=== PATIENT | female | born 1940 | race Caucasian/White ===

== ENCOUNTER 2017-09-20 07:13 | Day surgery (SDC) | payer MEDICARE, OTHER ==
[~2017-09-20] VITALS: Ht 160 cm; Wt 83.6 kg
[~2017-09-20 07:13] MED LIST: ALLO100 PO; ASPI81CH PO; ATACAND HCT PO; ATOR10 PO; CALCIUM PO; CHOLECALCIFEROL PO; ESOM20 PO; HYDRO EYES BOTHEYES; METO50ER PO; TIROSINT100 MCG PO; voltaren gel TOP
== END 2017-09-20 09:31 | disposition home or self-care (01) ==
LOC: ORSCSDS 07:13
PROVIDERS: Surgery
PROC: 0DBN8ZX Excision of Sigmoid Colon, Via Natural or Artificial Opening Endoscopic, Diagnostic (ICD-10-PCS; principal; 2017-09-20 08:30)
DX: Z12.11 Encounter for screening for malignant neoplasm of colon (principal); D12.5 Benign neoplasm of sigmoid colon; K57.30 Diverticulosis of large intestine without perforation or abscess without bleeding; Z86.010 Personal history of colon polyps; I10 Essential (primary) hypertension; E78.5 Hyperlipidemia, unspecified; E03.9 Hypothyroidism, unspecified; Z79.82 Long term (current) use of aspirin; Z79.899 Other long term (current) drug therapy; Z87.891 Personal history of nicotine dependence
CPT/HCPCS: 88305

== ENCOUNTER → 2017-10-02 | Outpatient (CLI) | payer MEDICARE, OTHER | END | disposition home or self-care (01) | LOC: PLD 13:32 → LAB SHORT 13:32 | DX: D48.5 Neoplasm of uncertain behavior of skin (principal) | CPT/HCPCS: 88305 ==

== ENCOUNTER 2019-05-20 15:29 | Inpatient (IN) | payer MEDICARE, OTHER ==
[~2019-05-20] VITALS: Ht 157.5 cm; Wt 91.0 kg
[~2019-05-20 15:29] MED LIST changes: +ACET500 PO; +ANASTROZOLE5 GM PO; +COQ1050 MG PO; +TYLECOD3 PO
--- NOTE | 2019-05-21 06:36 | NUR ---
History, Chart, Medications and Allergies reviewed before start of procedure. Patient confirms NPO status and agrees with scheduled surgery. Lungs clear T/O to Auscultation.
--- NOTE | 2019-05-22 03:53 | NUR ---
Patient alert and oriented x4. VSS. Ambulating to bathroom with 1 assist and FWW. Voiding freely. Saline locked. Tolerating PO. No complaints of pain. Dressing to L hip D/C/I. Polar Ice applied.
[2019-05-22 06:13] LABS: BASOPHILS ABSOLUTE AUTO 0.01 K/mm3 (0.00-0.23); BASOPHILS PERCENT AUTO 0 % (0-2); EOSINOPHILS PERCENT AUTO 0 % (0-6); Hematocrit 24.6 % (33.0-51.0); Hemoglobin 7.9 g/dL (11.5-16.0); IMMATURE GRAN ABSOLUTE AUTO 0.05 K/mm3 (0.00-0.10); IMMATURE GRAN PERCENT AUTO 1 % (0-1); LYMPHOCYTES ABSOLUTE AUTO 0.75 K/mm3 (0.84-5.20); LYMPHOCYTES PERCENT AUTO 7 % (21-46); MONOCYTES ABSOLUTE AUTO 1.03 K/mm3 (0.16-1.47); MONOCYTES PERCENT AUTO 10 % (4-13); Mean Corpuscular HGB 32.4 pg (26.0-34.0); Mean Corpuscular HGB Conc 32.1 g/dL (31.5-36.5); Mean Corpuscular Volume 101 fL (80-100); Mean Platelet Volume 9.9 fL (9.1-12.4); NEUTROPHILS ABSOLUTE AUTO 9.01 K/mm3 (1.96-9.15); NEUTROPHILS PERCENT AUTO 83 % (41-73); Platelet Count 237 K/mm3 (150-400); RDW Coefficient Variation 14.3 % (11.7-14.2); RDW Standard Deviation 52.6 fL (35.1-46.3); Red Blood Cell Count 2.44 M/mm3 (3.80-5.20); White Blood Cell Count 10.85 K/mm3 (4.00-11.30)
[2019-05-22 06:28] LABS: Bun/Creatinine Ratio 24.4 (12.0-20.0); Calcium, Blood 8.3 mg/dL (8.5-10.1); Creatinine, Blood 1.8 mg/dL (0.40-1.00); Magnesium, Blood 1.2 mg/dL (1.6-2.4); Potassium, Blood 4.6 mmol/L (3.5-5.5)
[2019-05-22] MEDS ORDERED: ASPI325EC PO (07:58)
[2019-05-22] MEDS ORDERED: ROXICODONE5 MG PO (07:58)
[2019-05-22] MEDS ORDERED: Bactrim Ds Tab1 EACH PO (08:41)
--- NOTE | 2019-05-22 14:39 | NUR ---
DISCHARGE SUMMARY PT A&OX4, VSS, LEFT FLOOR VIA WC WITH RESIDENTIAL CONCIERGE TO GO HOME WITH AND DAUGHTER, WITH ALL PERSONAL POSSESSIONS INCLUDING DC PACKET. PT REP HAVING ALL SCRIPTS FROM [facility] FILLED AND AT HOME. DC INSTRUCTIONS PROVIDED. PT REP UNDERSTANDING THOSE INSTRUCTIONS INCLUDING HOME HEALTH, PHYSICAL THERAPY, SHORT FREQ AMB, OK TO SHOWER, NO TUB BATHS/JACUZZI, PAIN MANAGEMENT. IV DC'D.
== END 2019-05-22 14:40 | disposition home or self-care (01) | DRG 470 ==
LOC: SURS 05-21 06:07 → PRE IP 05-21 07:30 → SURS 05-21 10:57
PROVIDERS: ADMIT Orthopaedic Surgery
PROC: 0SRB04A Replacement of Left Hip Joint with Ceramic on Polyethylene Synthetic Substitute, Uncemented, Open Approach (ICD-10-PCS; principal; 2019-05-21 07:30)
DX: M16.12 Unilateral primary osteoarthritis, left hip (principal); I12.9 Hypertensive chronic kidney disease with stage 1 through stage 4 chronic kidney disease, or unspecified chronic kidney disease; M19.90 Unspecified osteoarthritis, unspecified site; K21.9 Gastro-esophageal reflux disease without esophagitis; N18.9 Chronic kidney disease, unspecified; Z68.36 Body mass index [BMI] 36.0-36.9, adult
CPT/HCPCS: 36415; 72170; 80048; 83735; 85025; 88300; 97110; 97116; 97162; 97166; 97530; 97535; C1713; C1776; J0171; J0690; J0735; J1100; J1885; J2250; J2405; J2704; J2795; J3010; J3370; J3475; J3480; J7040; J7120

== ENCOUNTER → 2019-10-02 | Outpatient (CLI) | payer MEDICARE, OTHER ==
[~2019-10-02] MED LIST changes: +ASPI325EC PO; +Bactrim Ds Tab1 EACH PO; +ROXICODONE5 MG PO
== END | disposition home or self-care (01) ==
LOC: LAB SHORT 09:05 → PLD 09:05
DX: D48.5 Neoplasm of uncertain behavior of skin (principal)
CPT/HCPCS: 88305

== ENCOUNTER 2020-07-18 13:14 | Emergency (ER) | payer MEDICARE, OTHER ==
[~2020-07-18] VITALS: Ht 157.5 cm; Wt 87.5 kg
[~2020-07-18 13:14] MED LIST changes: -ALLO100 PO; -ANASTROZOLE5 GM PO; -ASPI325EC PO; -ATACAND HCT PO; -ATOR10 PO; -ESOM20 PO; -METO50ER PO; -TIROSINT100 MCG PO
[2020-07-18 14:27] LABS: BASOPHILS ABSOLUTE AUTO 0.05 K/mm3 (0.00-0.23); BASOPHILS PERCENT AUTO 1 % (0-2); EOSINOPHILS ABSOLUTE AUTO 0.22 K/mm3 (0.00-0.68); EOSINOPHILS PERCENT AUTO 4 % (0-6); Hematocrit 36.7 % (33.0-51.0); Hemoglobin 11.4 g/dL (11.5-16.0); IMMATURE GRAN ABSOLUTE AUTO 0.02 K/mm3 (0.00-0.10); IMMATURE GRAN PERCENT AUTO 0 % (0-1); LYMPHOCYTES ABSOLUTE AUTO 1.16 K/mm3 (0.84-5.20); LYMPHOCYTES PERCENT AUTO 19 % (21-46); MONOCYTES PERCENT AUTO 8 % (4-13); Mean Corpuscular HGB 31.7 pg (26.0-34.0); Mean Corpuscular HGB Conc 31.1 g/dL (31.5-36.5); Mean Corpuscular Volume 102 fL (80-100); Mean Platelet Volume 10.4 fL (9.1-12.4); NEUTROPHILS ABSOLUTE AUTO 4.21 K/mm3 (1.96-9.15); NEUTROPHILS PERCENT AUTO 68 % (41-73); Platelet Count 230 K/mm3 (150-400); RDW Coefficient Variation 13.1 % (11.7-14.2); RDW Standard Deviation 49.1 fL (35.1-46.3); White Blood Cell Count 6.16 K/mm3 (4.00-11.30)
[2020-07-18 14:40] LABS: Troponin I <0.015 ng/mL (0.000-0.040)
[2020-07-18 14:41] LABS: Alanine Aminotransfer (ALT/SGP 21 U/L (12-78); Albumin, Blood 3.7 g/dL (3.4-5.0); Albumin/Globulin Ratio 1.1 (0.8-1.8); Alk Phos 62 U/L (50-136); Anion Gap 4 mmol/L (6-16); Aspartate Aminotrans (AST/SGOT 20 U/L (12-37); Bilirubin, Total 0.5 mg/dL (0.1-1.0); Blood Urea Nitrogen 30 mg/dL (8-24); Bun/Creatinine Ratio 19.5 (12.0-20.0); CO2, Blood 30 mmol/L (21-32); Calcium, Blood 9.5 mg/dL (8.5-10.1); Chloride, Blood 109 mmol/L (98-108); Creatinine, Blood 1.54 mg/dL (0.40-1.00); Globulin, Blood 3.4 g/dL (2.2-4.0); Glomerular Filtration Rate 34 (60-); Glucose, Blood 119 mg/dL (70-99); Potassium, Blood 3.8 mmol/L (3.5-5.5); Sodium, Blood 143 mmol/L (136-145); Total Protein, Blood 7.1 g/dL (6.4-8.2)
== END 2020-07-18 19:30 | disposition home or self-care (01) ==
LOC: ER 13:14
PROVIDERS: Emergency Medicine
DX: E83.42 Hypomagnesemia (principal); R51.9 Headache, unspecified; I10 Essential (primary) hypertension; Z91.09 Other allergy status, other than to drugs and biological substances; Z79.82 Long term (current) use of aspirin; Z79.899 Other long term (current) drug therapy; Z87.891 Personal history of nicotine dependence
CPT/HCPCS: 36415; 70450; 71045; 80053; 83735; 84484; 85025; 93005; 93010; 99284-25; J7120

== ENCOUNTER 2020-07-20 15:26 | Emergency (ER) | payer MEDICARE, OTHER ==
[~2020-07-20] VITALS: Ht 157.5 cm; Wt 87.5 kg
[2020-07-20 16:31] LABS: BASOPHILS ABSOLUTE AUTO 0.03 K/mm3 (0.00-0.23); BASOPHILS PERCENT AUTO 1 % (0-2); EOSINOPHILS ABSOLUTE AUTO 0.05 K/mm3 (0.00-0.68); EOSINOPHILS PERCENT AUTO 1 % (0-6); Hematocrit 33.5 % (33.0-51.0); Hemoglobin 10.6 g/dL (11.5-16.0); IMMATURE GRAN ABSOLUTE AUTO 0.01 K/mm3 (0.00-0.10); IMMATURE GRAN PERCENT AUTO 0 % (0-1); LYMPHOCYTES ABSOLUTE AUTO 1.13 K/mm3 (0.84-5.20); LYMPHOCYTES PERCENT AUTO 19 % (21-46); MONOCYTES ABSOLUTE AUTO 0.39 K/mm3 (0.16-1.47); MONOCYTES PERCENT AUTO 7 % (4-13); Mean Corpuscular HGB 31.7 pg (26.0-34.0); Mean Corpuscular HGB Conc 31.6 g/dL (31.5-36.5); Mean Corpuscular Volume 100 fL (80-100); Mean Platelet Volume 10.8 fL (9.1-12.4); NEUTROPHILS ABSOLUTE AUTO 4.38 K/mm3 (1.96-9.15); NEUTROPHILS PERCENT AUTO 73 % (41-73); Platelet Count 231 K/mm3 (150-400); RDW Coefficient Variation 13.2 % (11.7-14.2); RDW Standard Deviation 48.1 fL (35.1-46.3); Red Blood Cell Count 3.34 M/mm3 (3.80-5.20); White Blood Cell Count 5.99 K/mm3 (4.00-11.30)
[2020-07-20 16:55] LABS: Alanine Aminotransfer (ALT/SGP 18 U/L (12-78); Albumin, Blood 3.5 g/dL (3.4-5.0); Albumin/Globulin Ratio 1.1 (0.8-1.8); Alk Phos 56 U/L (50-136); Anion Gap 6 mmol/L (6-16); Aspartate Aminotrans (AST/SGOT 17 U/L (12-37); Bilirubin, Total 0.7 mg/dL (0.1-1.0); Blood Urea Nitrogen 19 mg/dL (8-24); Bun/Creatinine Ratio 15.8 (12.0-20.0); CO2, Blood 29 mmol/L (21-32); Calcium, Blood 9.5 mg/dL (8.5-10.1); Chloride, Blood 106 mmol/L (98-108); Globulin, Blood 3.1 g/dL (2.2-4.0); Glomerular Filtration Rate 46 (60-); Glucose, Blood 99 mg/dL (70-99); Potassium, Blood 3.6 mmol/L (3.5-5.5); Sodium, Blood 141 mmol/L (136-145); Total Protein, Blood 6.6 g/dL (6.4-8.2); Troponin I <0.015 ng/mL (0.000-0.040)
[2020-07-20 17:52] LABS: Source, Urine Clean Catch
[2020-07-20 17:56] LABS: Bilirubin, Urine Neg (Neg); Blood, Urine Neg (Neg); Glucose Qualitative, Urine Neg (Neg); Ketones, Urine Neg (Neg); Leukocyte Esterase, Urine 1+ (Neg); Nitrite, Urine Neg (Neg); Protein, Urine Neg (Neg); Urobilinogen, Urine NORM (Normal)
[2020-07-20 18:01] LABS: Appearance, Urine Clear (Clear); Color, Urine Yellow (P-Yellow)
[2020-07-20 18:02] LABS: Bacteria Few /hpf; Red Blood Cells, Urine 0-2 /hpf (0-2); Squamous Epithelial Cells Few /hpf (Few)
[2020-07-20] MEDS ORDERED: Zofran4 MG PO (18:41)
[2020-07-21] MEDS ORDERED: AMLODIPINE BES2.5 MG PO (12:59)
[2020-07-21] MEDS ORDERED: ALLO100 PO (12:59)
[2020-07-21] MEDS ORDERED: EUTHYROX88 MCG PO (12:59)
[2020-07-21] MEDS ORDERED: ATOR10 PO (13:00)
[2020-07-21] MEDS ORDERED: ANASTROZOLE1 M1 PO (13:00)
[2020-07-21] MEDS ORDERED: ATACAND HCT 321 EAC1 PO (13:00)
[2020-07-21] MEDS ORDERED: METO50ER PO (13:01)
[2020-07-21] MEDS ORDERED: ASPIR 8181 M1 PO (13:21)
[2020-07-21] MEDS ORDERED: Nexium40 MG PO (13:21)
[2020-07-21] MEDS ORDERED: MAGNESIUM OXID500 MG PO (13:22)
== END 2020-07-20 20:20 | disposition home or self-care (01) ==
LOC: ER 15:26
PROVIDERS: Physician Assistant
DX: E83.42 Hypomagnesemia (principal); I10 Essential (primary) hypertension; Z79.82 Long term (current) use of aspirin; Z91.09 Other allergy status, other than to drugs and biological substances; Z79.899 Other long term (current) drug therapy; Z87.891 Personal history of nicotine dependence
CPT/HCPCS: 71046; 80053; 81001; 83735; 84100; 84484; 85025; 87086; 87147; 93005; 93010; 96374; 99284-25; A9270-GY; J3475

== ENCOUNTER 2020-07-21 08:34 | Inpatient (IN) | payer MEDICARE, OTHER ==
[~2020-07-21] VITALS: Ht 157.5 cm; Wt 83.3 kg
[~2020-07-21 08:34] MED LIST changes: +Zofran4 MG PO
[2020-07-21 09:58] LABS: BASOPHILS ABSOLUTE AUTO 0.02 K/mm3 (0.00-0.23); BASOPHILS PERCENT AUTO 0 % (0-2); EOSINOPHILS ABSOLUTE AUTO 0.02 K/mm3 (0.00-0.68); EOSINOPHILS PERCENT AUTO 0 % (0-6); Hematocrit 30.3 % (33.0-51.0); Hemoglobin 9.4 g/dL (11.5-16.0); IMMATURE GRAN ABSOLUTE AUTO 0.03 K/mm3 (0.00-0.10); IMMATURE GRAN PERCENT AUTO 1 % (0-1); LYMPHOCYTES ABSOLUTE AUTO 0.84 K/mm3 (0.84-5.20); LYMPHOCYTES PERCENT AUTO 18 % (21-46); MONOCYTES ABSOLUTE AUTO 0.25 K/mm3 (0.16-1.47); MONOCYTES PERCENT AUTO 5 % (4-13); Mean Corpuscular HGB 31.6 pg (26.0-34.0); Mean Corpuscular Volume 102 fL (80-100); NEUTROPHILS ABSOLUTE AUTO 3.53 K/mm3 (1.96-9.15); NEUTROPHILS PERCENT AUTO 75 % (41-73); Platelet Count 186 K/mm3 (150-400); RDW Coefficient Variation 12.9 % (11.7-14.2); RDW Standard Deviation 48.1 fL (35.1-46.3); Red Blood Cell Count 2.97 M/mm3 (3.80-5.20); White Blood Cell Count 4.69 K/mm3 (4.00-11.30)
[2020-07-21 10:18] LABS: Alanine Aminotransfer (ALT/SGP 16 U/L (12-78); Albumin, Blood 3.3 g/dL (3.4-5.0); Albumin/Globulin Ratio 1.1 (0.8-1.8); Alk Phos 55 U/L (50-136); Anion Gap 6 mmol/L (6-16); Aspartate Aminotrans (AST/SGOT 17 U/L (12-37); Bilirubin, Total 0.6 mg/dL (0.1-1.0); Blood Urea Nitrogen 17 mg/dL (8-24); Bun/Creatinine Ratio 14.8 (12.0-20.0); CO2, Blood 27 mmol/L (21-32); Calcium, Blood 9.3 mg/dL (8.5-10.1); Chloride, Blood 107 mmol/L (98-108); Creatinine, Blood 1.15 mg/dL (0.40-1.00); Glomerular Filtration Rate 48 (60-); Glucose, Blood 99 mg/dL (70-99); Magnesium, Blood 1.6 mg/dL (1.6-2.4); Potassium, Blood 3.7 mmol/L (3.5-5.5); Sodium, Blood 140 mmol/L (136-145); Total Protein, Blood 6.3 g/dL (6.4-8.2); Troponin I <0.015 ng/mL (0.000-0.040)
[2020-07-21] MEDS ORDERED: ALLO100 PO (12:59)
[2020-07-21] MEDS ORDERED: AMLODIPINE BES2.5 MG PO (12:59)
[2020-07-21] MEDS ORDERED: EUTHYROX88 MCG PO (12:59)
[2020-07-21] MEDS ORDERED: ATOR10 PO (13:00)
[2020-07-21] MEDS ORDERED: ATACAND HCT 321 EAC1 PO (13:00)
[2020-07-21] MEDS ORDERED: ANASTROZOLE1 M1 PO (13:00)
[2020-07-21] MEDS ORDERED: METO50ER PO (13:01)
[2020-07-21] MEDS ORDERED: ASPIR 8181 M1 PO (13:21)
[2020-07-21] MEDS ORDERED: Nexium40 MG PO (13:21)
[2020-07-21] MEDS ORDERED: MAGNESIUM OXID500 MG PO (13:22)
[2020-07-21 13:27] LABS: Adenovirus Not Detected (NOT DETECT); Coronavirus 229E Not Detected (NOT DETECT); Coronavirus HKU1 Not Detected (NOT DETECT); Coronavirus NL63 Not Detected (NOT DETECT); Coronavirus OC43 Not Detected (NOT DETECT); Human Metapneumovirus Not Detected (NOT DETECT); Human Rhinovirus/Enterovirus Not Detected (NOT DETECT); Influenza A/2009-H1 Not Detected (NOT DETECT); Influenza A/H1 Not Detected (NOT DETECT); Influenza A/H3 Not Detected (NOT DETECT); Influenza B Not Detected (NOT DETECT); Parainfluenza Virus 1 Not Detected (NOT DETECT); Parainfluenza Virus 2 Not Detected (NOT DETECT); Parainfluenza Virus 3 Not Detected (NOT DETECT); Parainfluenza Virus 4 Not Detected (NOT DETECT); Respiratory Syncytial Virus Not Detected (NOT DETECT); SARS-Cov-2 (COVID-19), BioFire Not Detected (NOT DETECT)
[2020-07-21 13:28] LABS: Bordetella pertussis Not Detected (NOT DETECT); Chlamydophila pneumoniae Not Detected (NOT DETECT); Mycoplasma pneumoniae Not Detected (NOT DETECT)
--- NOTE | 2020-07-21 14:28 | NUR ---
DNR DNR BAND VERIFIED WITH SCOTTY KRAFT ON L HAND.
[2020-07-21 14:31] LABS: Hematocrit 32.4 % (33.0-51.0); Hemoglobin 10.3 g/dL (11.5-16.0)
--- NOTE | 2020-07-21 17:55 | NUR ---
PT IS A 79Y0 FEMALE- A0X4, WHO HAD 3 VISITS AT ED WITHIN THE LAST WEEK. PT CAME IN WITH N/T ON L SIDE, MOUTH DROOP ON L AND WEAKNESS WITH HEADACHE. CT HEAD WAS UNREMARKABLE 3DAYS AGO. PT CAME IN TO ED FOR THE SAME REASONS WITHIN THE LAST VISITS. PT IS 1P ASSIST USING FWW; PT HAS GENERALIZED WEAKNESS AND WILL DEFINITELY NEEDS ASSISTANCE AND SUPERVISION WHEN UP. PT SPEECH APPROPRIATE, NO GARBLED SPEECH NOTED. PT C/O N/T ON L SIDE FINGER AND L FOOT; H&h NOTED TO BE DROPPING WITHIN THE LAST 3 VISITS; THEREFORE GI WAS CONSULTED. PT WAS POSITIVE FOR FECAL OCCULT; HOWEVER PT STATED SHE ALSO HAS HEMMORHOIDS. NEURO CHECK DONE ON ADMISSION; PT DENIES CP. PT C/O CONSTANT HEADACHE; MEDICATED PER EMAR. PT IS ON NS KCL OF 20 MEQ. PT WILL BE NPO AT MIDNIGHT TONIGHT 07/22 FOR PROCEDURE BY MEENA LOVING. BED IS IN THE LOWEST POSITION; AND PT EDUCATED ABOUT USING CALL LIGHTS WHEN GETTING UP.
--- NOTE | 2020-07-22 04:15 | NUR ---
CORE CHECKER SUMMARY PT A&OX4, ABLE TO MAKE NEEDS KNOWN. PLEASANT AND COOPERATIVE TO CARE. PT MEDICATED FOR PAIN PER EMAR. NO C/O CP, SOB, OR N&V. PT ALSO GIVEN PRN TRAZODONE ORDERED FOR INSOMNIA. PT CALM AND RESTED IN BED T/O SHIFT, NPO AFTER MIDNIGHT FOR SCHEDULED EGD 07/22/20. BED AT LOWEST POSITION, CALL LIGHT WITHIN REACH.
[2020-07-22 05:35] LABS: BASOPHILS ABSOLUTE AUTO 0.04 K/mm3 (0.00-0.23); BASOPHILS PERCENT AUTO 1 % (0-2); EOSINOPHILS ABSOLUTE AUTO 0.08 K/mm3 (0.00-0.68); EOSINOPHILS PERCENT AUTO 1 % (0-6); Hematocrit 30.5 % (33.0-51.0); Hemoglobin 9.5 g/dL (11.5-16.0); IMMATURE GRAN ABSOLUTE AUTO 0.02 K/mm3 (0.00-0.10); IMMATURE GRAN PERCENT AUTO 0 % (0-1); LYMPHOCYTES ABSOLUTE AUTO 1.54 K/mm3 (0.84-5.20); LYMPHOCYTES PERCENT AUTO 25 % (21-46); MONOCYTES ABSOLUTE AUTO 0.46 K/mm3 (0.16-1.47); MONOCYTES PERCENT AUTO 8 % (4-13); Mean Corpuscular HGB 31.6 pg (26.0-34.0); Mean Corpuscular HGB Conc 31.1 g/dL (31.5-36.5); Mean Corpuscular Volume 101 fL (80-100); Mean Platelet Volume 10.5 fL (9.1-12.4); NEUTROPHILS ABSOLUTE AUTO 4.01 K/mm3 (1.96-9.15); NEUTROPHILS PERCENT AUTO 65 % (41-73); Platelet Count 222 K/mm3 (150-400); RDW Coefficient Variation 13.1 % (11.7-14.2); RDW Standard Deviation 48.8 fL (35.1-46.3); Red Blood Cell Count 3.01 M/mm3 (3.80-5.20); White Blood Cell Count 6.15 K/mm3 (4.00-11.30)
[2020-07-22 06:05] LABS: Albumin, Blood 3.1 g/dL (3.4-5.0); Albumin/Globulin Ratio 1.1 (0.8-1.8); Bilirubin, Total 0.6 mg/dL (0.1-1.0); Calcium, Blood 8.8 mg/dL (8.5-10.1); Creatinine, Blood 1.33 mg/dL (0.40-1.00); Globulin, Blood 2.7 g/dL (2.2-4.0); Potassium, Blood 4.4 mmol/L (3.5-5.5); Total Protein, Blood 5.8 g/dL (6.4-8.2)
--- NOTE | 2020-07-22 15:03 | NUR ---
07/22/20 1503 AMY OTERO History, Chart, Medications and Allergies reviewed before start of procedure. 3-LEAD EKG REVIEWED WITH PHYSICIAN PRIOR TO START OF PROCEDURE. O2 VIA N/C INTACT THROUGHOUT SEDATION/PROCEDURE. MONITOR INTACT WITH CONTINUOUS PULSE OXIMETRY AND INTERMITTENT BP. PATIENT DETERMINED TO BE ASA APPROPRIATE FOR PROPOFOL SEDATION PRIOR TO START OF PROCEDURE BY DR. SANDOVAL.
--- NOTE | 2020-07-22 19:34 | NUR ---
SHIFT SUMMARY: NO ACUTE CHANGES TO REPORT THIS SHIFT. PATIENT A&O; CALM AND COOPERATIVE WITH CARE. EGD THIS SHIFT; NO ISSUES NOTED. PATIENT CONTINUES WEAK & LETHARGIC; DR AWARE; MRI ORDERED; NEURO CHECKS CONTINUING. REPORT GIVEN TO ONCOMING RN.
--- NOTE | 2020-07-23 04:07 | NUR ---
SHIFT SUMMARY ADMITTED FOR ACUTE ANEMIA. DNR CODE. MRI TODAY. NS W/20 MEQ INFUSING ORDERED. PT IS A 1 ASSIST W/BRP THIS SHIFT. SHE DID GET UP AND WALK WITH A FWW IN THE HALLWAY. SHE IS MOTIVATED TO WALK MORE. NO NEW CONCERNS THIS SHIFT
[2020-07-23 06:04] LABS: BASOPHILS ABSOLUTE AUTO 0.04 K/mm3 (0.00-0.23); BASOPHILS PERCENT AUTO 1 % (0-2); EOSINOPHILS PERCENT AUTO 3 % (0-6); Hematocrit 27.7 % (33.0-51.0); Hemoglobin 8.7 g/dL (11.5-16.0); IMMATURE GRAN ABSOLUTE AUTO 0.02 K/mm3 (0.00-0.10); IMMATURE GRAN PERCENT AUTO 0 % (0-1); LYMPHOCYTES ABSOLUTE AUTO 1.29 K/mm3 (0.84-5.20); LYMPHOCYTES PERCENT AUTO 18 % (21-46); MONOCYTES PERCENT AUTO 8 % (4-13); Mean Corpuscular HGB 32.8 pg (26.0-34.0); Mean Corpuscular HGB Conc 31.4 g/dL (31.5-36.5); Mean Corpuscular Volume 105 fL (80-100); Mean Platelet Volume 10.4 fL (9.1-12.4); NEUTROPHILS ABSOLUTE AUTO 5.07 K/mm3 (1.96-9.15); NEUTROPHILS PERCENT AUTO 70 % (41-73); Platelet Count 189 K/mm3 (150-400); RDW Coefficient Variation 13.2 % (11.7-14.2); RDW Standard Deviation 49.8 fL (35.1-46.3); Red Blood Cell Count 2.65 M/mm3 (3.80-5.20); White Blood Cell Count 7.22 K/mm3 (4.00-11.30)
[2020-07-23 06:05] LABS: Bun/Creatinine Ratio 11.5 (12.0-20.0); Calcium, Blood 8.3 mg/dL (8.5-10.1); Creatinine, Blood 1.22 mg/dL (0.40-1.00); Potassium, Blood 4.8 mmol/L (3.5-5.5)
--- NOTE | 2020-07-23 19:37 | NUR ---
SHIFT SUMMARY: NO ACUTE CHANGES TO REPORT THIS SHIFT. PT A&O; CALM AND COOPERATIVE WITH CARE. MEDICATED FOR PAIN PER EMAR. SLIGHT L SIDE DEFICITS NOTED ON NEURO CHECKS; NO SPEECH/SWALLOWING DIFFICULTIES; NO AMBULATION/GAIT DEFICITS NOTED; PT & OT FOLLOWING. HEAD MRI THIS SHIFT; AWAITING RESULTS. REPORT GIVEN TO ONCOMING RN.
--- NOTE | 2020-07-24 01:28 | NUR ---
07/23/201944 PT RESTING COMFORTABLY BEDSIDE CHAIR; ALERT AND ORIENTED X 4; DENIES PAIN.
--- NOTE | 2020-07-24 03:33 | NUR ---
SHIFT SUMMARY: 79 Y/O FEMALE RESTED COMFORTABLY ALL SHIFT; ALERT AND ORIENTED X 4; NO NEURO DEFICITS NOTED; ABLE TO SWALLOW FLUIDS WELL; DENIES PAIN OR NAUSEA; BED LOW POSITION WITH CALL LIGHT AT SIDE.
--- NOTE | 2020-07-24 18:20 | NUR ---
SHIFT SUMMARY PT WITH NAUSEA ON AND OFF THROUGHOUT DAY. WOULD REPORS FEELING LIGHTHEADED OR DIZZY JUST PRIOR TO NAUSEA. RETCHING THIS MORNING AND A.M. MEDS NOT GIVEN. FAMILY AT BEDSIDE THIS AFTERNOON AND EVENING AND PROVIDED ENCOURAGEMENT TO PT. UP TO BATHROOM SEVERAL TIMES WITH FWW. K PAD APPLIED TO NECK AND BACK FROM MUSCLE SORENESS AND TENSENESS.
[2020-07-25 04:51] LABS: BASOPHILS ABSOLUTE AUTO 0.02 K/mm3 (0.00-0.23); BASOPHILS PERCENT AUTO 0 % (0-2); EOSINOPHILS ABSOLUTE AUTO 0.19 K/mm3 (0.00-0.68); EOSINOPHILS PERCENT AUTO 3 % (0-6); Hematocrit 28.3 % (33.0-51.0); Hemoglobin 8.8 g/dL (11.5-16.0); IMMATURE GRAN ABSOLUTE AUTO 0.01 K/mm3 (0.00-0.10); IMMATURE GRAN PERCENT AUTO 0 % (0-1); LYMPHOCYTES ABSOLUTE AUTO 1.12 K/mm3 (0.84-5.20); LYMPHOCYTES PERCENT AUTO 16 % (21-46); MONOCYTES ABSOLUTE AUTO 0.67 K/mm3 (0.16-1.47); MONOCYTES PERCENT AUTO 10 % (4-13); Mean Corpuscular HGB 31.5 pg (26.0-34.0); Mean Corpuscular HGB Conc 31.1 g/dL (31.5-36.5); Mean Corpuscular Volume 101 fL (80-100); Mean Platelet Volume 10.4 fL (9.1-12.4); NEUTROPHILS ABSOLUTE AUTO 5.01 K/mm3 (1.96-9.15); NEUTROPHILS PERCENT AUTO 71 % (41-73); Platelet Count 185 K/mm3 (150-400); RDW Coefficient Variation 13.2 % (11.7-14.2); RDW Standard Deviation 49.4 fL (35.1-46.3); Red Blood Cell Count 2.79 M/mm3 (3.80-5.20); White Blood Cell Count 7.02 K/mm3 (4.00-11.30)
[2020-07-25 05:10] LABS: Bun/Creatinine Ratio 11.2 (12.0-20.0); Calcium, Blood 8.7 mg/dL (8.5-10.1); Creatinine, Blood 1.16 mg/dL (0.40-1.00); Potassium, Blood 4.2 mmol/L (3.5-5.5)
--- NOTE | 2020-07-25 05:34 | NUR ---
SHIFT SUMMARY PT SLEPT FOR THE FIRST PART OF SHIFT. ONCE WAKING PT REPORTED THAT SHE FELT MUCH BETTER. ONLY REPORTING MINIMAL PAIN IN NECK. HEATING PAD IN PLACE. PT SLEPT WELL THIS EVENING, SLEEPING THROUGH MUCH OF THE NIGHT. CONTINUES TO HAVE A SLIGHT LEFT FACIAL DROOP, OTHERWISE NEURO CHECKS UNREMARKABLE. PT DID REPORT THIS AM THAT SHE WAS STARTING TO HAVE A HEADACHE AGAIN, 650 MG TYLENOL GIVEN. VITAL SIGNS STABLE. NO ACUTE CHANGES THIS SHIFT, WILL CONTINUE TO MONITOR.
--- NOTE | 2020-07-25 18:17 | NUR ---
SHIFT SUMMARY PT HAS BEEN DOING WELL THROUGHOUT DAY. HAS DENIED NAUSEA OR HEADACHE TODAY. STATES SHE IS FEELING MUCH BETTER. HAS BEEN TO BATHRROM WITH 1 PERSON ASSIST USING A FWW SEVERAL TIMES. NO RESP DISTRESS OR NEUROLOGICAL ISSUES NOTED. FAMILY AT BEDSIDE THIS AFTERNOON.
--- NOTE | 2020-07-26 04:54 | NUR ---
SHIFT SUMMARY PT HAD UNEVENTFUL NIGHT. SLEPT WELL THROUGH MOST OF THE NIGHT. PT HAD ONE LARGE LOOSE BM. PT REPORTED THAT THIS WAS BASELINE FOR HER TO HAVE SOME CONSTIPATION AND THEN A LARGE LOOSE STOOL. PT DENIED ANY DIZZINESS OR NAUSEA THIS EVENING. SOME MINIMAL PAIN R/T SPENDING SO MUCH TIME IN BED. HEATING PAD IN PLACE. VITAL SIGNS STABLE. NO ACUTE CHANGES THIS SHIFT. WILL CONTINUE TO MONITOR AND REPORT TO DAY RN.
[2020-07-26] MEDS ORDERED: HYDCHL25 PO (17:02)
[2020-07-26] MEDS ORDERED: LOSARTAN POTAS100 M1 PO (17:02)
[2020-07-26] MEDS ORDERED: MECL25 PO (17:03)
--- NOTE | 2020-07-26 17:33 | NUR ---
DISCHARGE SUMMARY RALPH LEFT WITH HER DAUGHTER BY NERI. MEDS FAXED TO PHARMACY. LUZ MARIA CALLING HER WITH F/U APPT. PAPERWORK REVIEWED. NO PIV PRESENT. QUESTIONS ANSWERED
[2020-07-27 21:10] LABS: METHYLMALONIC ACID, SERUM 125 nmol/L (0-378)
== END 2020-07-26 17:32 | disposition home health service (06) | DRG 65 ==
LOC: ER 08:34 → MEDS 12:02 → ENPENDDIS 07-26 16:13 → MEDS 07-26 17:32
PROVIDERS: Emergency Medicine; Internal Medicine; Student in an Organized Health Care Education/Training Program; ADMIT Family Medicine
PROC: 0DJ08ZZ Inspection of Upper Intestinal Tract, Via Natural or Artificial Opening Endoscopic (ICD-10-PCS; principal; 2020-07-22 14:00)
DX: I63.532 Cerebral infarction due to unspecified occlusion or stenosis of left posterior cerebral artery (principal); G81.94 Hemiplegia, unspecified affecting left nondominant side; D62 Acute posthemorrhagic anemia; R29.810 Facial weakness; Z90.5 Acquired absence of kidney; Z96.642 Presence of left artificial hip joint; I12.9 Hypertensive chronic kidney disease with stage 1 through stage 4 chronic kidney disease, or unspecified chronic kidney disease; N18.30 Chronic kidney disease, stage 3 unspecified; E03.9 Hypothyroidism, unspecified; M10.9 Gout, unspecified; Z85.3 Personal history of malignant neoplasm of breast; K64.4 Residual hemorrhoidal skin tags; K44.9 Diaphragmatic hernia without obstruction or gangrene; Z22.330 Carrier of Group B streptococcus; Z66 Do not resuscitate; Z20.828 Contact with and (suspected) exposure to other viral communicable diseases; I65.29 Occlusion and stenosis of unspecified carotid artery
CPT/HCPCS: 0202U; 36415; 70551; 80048; 80053; 82272; 82607; 82746; 83090; 83735; 83921; 84484; 85014; 85018; 85025; 93005; 93010; 93306; 93880; 96374; 97110; 97116; 97161; 97165; 97530; 97535; 99285-25; A9270; A9270-GY; C9113; J1650; J2405; J2704; J3475; J3480; J7120

== ENCOUNTER 2022-05-31 18:42 | Observation (INO) | payer MEDICARE, OTHER ==
[~2022-05-31] VITALS: Ht 157.5 cm; Wt 89.0 kg
[~2022-05-31 18:42] MED LIST changes: +ALLO100 PO; +AMLODIPINE BES2.5 MG PO; +ANASTROZOLE1 M1 PO; +ASPIR 8181 M1 PO; +ATACAND HCT 321 EAC1 PO; +ATOR10 PO; +EUTHYROX88 MCG PO; +HYDCHL25 PO; +LOSARTAN POTAS100 M1 PO; +MAGNESIUM OXID500 MG PO; +MECL25 PO; +METO50ER PO; +Nexium40 MG PO
[2022-05-31 19:59] LABS: BASOPHILS ABSOLUTE AUTO 0.05 K/mm3 (0.00-0.23); BASOPHILS PERCENT AUTO 1 % (0-2); EOSINOPHILS ABSOLUTE AUTO 0.15 K/mm3 (0.00-0.68); EOSINOPHILS PERCENT AUTO 2 % (0-6); Hematocrit 30.2 % (33.0-51.0); Hemoglobin 9.4 g/dL (11.5-16.0); IMMATURE GRAN ABSOLUTE AUTO 0.01 K/mm3 (0.00-0.10); IMMATURE GRAN PERCENT AUTO 0 % (0-1); LYMPHOCYTES PERCENT AUTO 22 % (21-46); MONOCYTES ABSOLUTE AUTO 0.74 K/mm3 (0.16-1.47); MONOCYTES PERCENT AUTO 11 % (4-13); Mean Corpuscular HGB 31.6 pg (26.0-34.0); Mean Corpuscular HGB Conc 31.1 g/dL (31.5-36.5); Mean Corpuscular Volume 102 fL (80-100); NEUTROPHILS ABSOLUTE AUTO 4.46 K/mm3 (1.96-9.15); NEUTROPHILS PERCENT AUTO 65 % (41-73); Platelet Count 193 K/mm3 (150-400); RDW Coefficient Variation 14.5 % (11.7-14.2); Red Blood Cell Count 2.97 M/mm3 (3.80-5.20); White Blood Cell Count 6.91 K/mm3 (4.00-11.30)
[2022-05-31 20:09] LABS: Free Thyroxine 1.41 ng/dL (0.70-1.60)
[2022-05-31 20:13] LABS: Thyroid Stimulating Hormone 2.69 uIU/mL (0.360-4.800)
[2022-05-31 20:28] LABS: Albumin, Blood 3.6 g/dL (3.4-5.0); Albumin/Globulin Ratio 1.4 (0.8-1.8); Bilirubin, Total 0.5 mg/dL (0.1-1.0); Bun/Creatinine Ratio 18.5 (12.0-20.0); Calcium, Blood 8.9 mg/dL (8.5-10.1); Creatinine, Blood 1.46 mg/dL (0.40-1.00); Globulin, Blood 2.6 g/dL (2.2-4.0); Magnesium, Blood 0.9 mg/dL (1.6-2.4); Potassium, Blood 3.6 mmol/L (3.5-5.5); Total Protein, Blood 6.2 g/dL (6.4-8.2)
[2022-06-01 00:17] LABS: CHOL/HDL RATIO 3.2; Cholesterol 131 mg/dL (50-200); HDL Cholesterol 41 mg/dL (>39); LDL/HDL RATIO 1.6; Low Density Lipoprotein Chol 67 mg/dL (0-110); Triglycerides 117 mg/dL (30-160); Very Low Density Lipoprot Chol 23 mg/dL (6-32)
[2022-06-01] MEDS ORDERED: ACETAMINOPHEN500 MG PO (00:56)
--- NOTE | 2022-06-01 05:27 | NUR ---
SHIFT SUMMARY PT CAME TO PCU THIS AM FROM THE ED. SHE HAS BEEN SR 70'S-80'S SINCE ARRIVING, HAS BEEN HYPERTENSIVE BUT WAS GIVEN 75MG METOPROLOL XL IN THE ED WHICH HAS DECREASED HER BP. WHEN SITTING UP IN BED HER HR JUMPED UP TO 130 BPM FOR ABOUT TWO MINUTES. SHE HAS HAD NO C/O ANGINA, SOB, DIZZINESS, OR N/V. PT'S BP INCREASES W/ ACTIVITY BUT HAS IMPROVED SINCE ADMISSION. SHE IS A SBA W/ FWW, AND MOVES IND IN BED. HER BED IS IN LOW, THREE SIDE RAILS UP, AND HAS A BED ALARM ON. SHE A&OX4 AND IS RESTING IN BED. WILL CONTINUE TO MONITOR UNTIL SHIFT REPORT IS GIVEN TO THE ONCOMING SHIFT RN. SEE NOTES FOR ANY UPDATES.
--- NOTE | 2022-06-01 10:11 | NUR ---
AM NOTE: PATIENT ALERT AND ORIENTED X4. WEARING GLASSES, PERRLA. DENIES NUMBNESS/TINGLING AT THIS TIME, ALTHOUGH INTERMIT N/T TO BILATERAL HANDS. UP WITH ONE PERSON ASSIST WITH FWW TO BATHROOM. ON ROOM AIR SATING ABOVE 95%. DENIES SOB. LUNGS SOUNDING CLEAR. NO COUGH NOTED. ON TELE SINUS SUSY-SINUS RHYTHM HR 59-80'S. DENIES CHEST PAIN/PRESSURE. BP SLIGHTLY ELEVATED THIS AM. WAITING FOR ECHO. WHEN UP TO BATHROOM HR ONLY INCERASED INTO 80'S. STATES SHE FEELS SHAKEY INSIDE. NO VISUAL SHAKES NOTED OR FELT. PPP. NO EDEMA NOTED. COMPLAINS OF BILATERAL SHOULDER SORENESS, ATTRIBUTING IT TO LAYING IN BED TO LONG. PAIN RELIEVED WITH TYLENOL. DENIES ABDOMINAL PAIN/NAUSEA. TOLERATING PO DIET. UP TO BATHROOM TO VOID. ATTENDS IN PLACE. IV MAG INFUSED THIS AM. CALL LIGHT IN REACH. DENIES NEEDS AT THIS TIME. WILL CONTINUE TO MONITOR.
--- NOTE | 2022-06-01 15:41 | NUR ---
PATIENT HR TRENDING 57-66. BP STABLE. THIS RN PLACED CALL TO DR. EDWARDS REGARDING 1500 METOPROLOL SUCCINATE DOSE. ORDERS TO DC CURRENT 75MG PO METOPROLOL SUCCINATE AND REORDER AT 12.5MG PO METORPOLOL SUCCINATE DAILY STARTING NOW. ECHO STILL PENDING. WILL CALL DR. EDWARDS WHEN RESULTS ARE IN.
--- NOTE | 2022-06-01 15:55 | NUR ---
LOWER DOSE OF METOPROLOL HELD DUE TO HR AVERAGING 55-57 AT THIS TIME.
--- NOTE | 2022-06-01 17:42 | NUR ---
SHIFT SUMMARY: NO ACUTE CHANGES THROUGHOUT SHIFT. SEE PREVIOUS NOTES FOR UPDATES. VITAL SIGNS REMAIN STABLE. REMAINS IN SINUS SUSY/SINUS RHYTHM WITH HR 50-60'S. NO EPISODES OF AFIB OR SINUS TACH THIS SHIFT. HR INCREASED TO 80'S WHEN UP TO BATHROOM. WEARING SCD'S THROUGHOUT SHIFT. ECHO STILL PENDING. REMAINS ON ROOM AIR. TOLERATING PO DIET. DENIES NEEDS. EATING DINNER AT THIS TIME. CALL LIGHT IN REACH. WILL CONTINUE TO MONITOR AND REPORT OFF TO ONCOMING RN.
[2022-06-02 03:47] LABS: BASOPHILS ABSOLUTE AUTO 0.03 K/mm3 (0.00-0.23); BASOPHILS PERCENT AUTO 1 % (0-2); EOSINOPHILS ABSOLUTE AUTO 0.28 K/mm3 (0.00-0.68); EOSINOPHILS PERCENT AUTO 5 % (0-6); Hemoglobin 8.7 g/dL (11.5-16.0); IMMATURE GRAN ABSOLUTE AUTO 0.01 K/mm3 (0.00-0.10); IMMATURE GRAN PERCENT AUTO 0 % (0-1); LYMPHOCYTES ABSOLUTE AUTO 1.42 K/mm3 (0.84-5.20); LYMPHOCYTES PERCENT AUTO 24 % (21-46); MONOCYTES PERCENT AUTO 10 % (4-13); Mean Corpuscular HGB 32.2 pg (26.0-34.0); Mean Corpuscular HGB Conc 32.2 g/dL (31.5-36.5); Mean Corpuscular Volume 100 fL (80-100); Mean Platelet Volume 10.2 fL (9.1-12.4); NEUTROPHILS ABSOLUTE AUTO 3.49 K/mm3 (1.96-9.15); NEUTROPHILS PERCENT AUTO 60 % (41-73); Platelet Count 225 K/mm3 (150-400); RDW Coefficient Variation 14.4 % (11.7-14.2); RDW Standard Deviation 52.7 fL (35.1-46.3); White Blood Cell Count 5.83 K/mm3 (4.00-11.30)
--- NOTE | 2022-06-02 04:21 | NUR ---
SHIFT SUMMARY PT IS A&OX4, SBA W/ FWW, MOVES IND IN BED, CALLS APPROPRIATELY, AND HAD BEEN SB-SR 50'S-70'S THIS SHIFT. SHE WAS C/O PAIN IN BOTH SHOULDERS AND WAS MEDICATED WITH 650MG OF TYLONAL AND GIVEN AN EXTRA PILLOW WHICH HAS ELIMINATED HER PAIN. PT HAS HAD NO C/O ANGINA, TREMORS, N/V, OR DYSPNEA THIS SHIFT. SHE HAS BEEN ASLEEP MOST OF THE NIGHT EXCEPT WHEN WOKEN UP FOR MEDICATIONS, VS, LABS, AND NEED FOR THE BATHROOM. PT HAS HER BED ALARM ON, CALL LIGHT IN REACH, AND BED IN LOW. WILL CONTINUE TO MONITOR UNTIL SHIFT REPORT IS GIVEN TO THE ONCOMING SHIFT RN. SEE NOTES FOR ANY UPDATES.
[2022-06-02 04:35] LABS: Bun/Creatinine Ratio 19.6 (12.0-20.0); Calcium, Blood 8.5 mg/dL (8.5-10.1); Creatinine, Blood 1.43 mg/dL (0.40-1.00); Magnesium, Blood 1.8 mg/dL (1.6-2.4); Thyroid Stimulating Hormone 2.39 uIU/mL (0.360-4.800)
[2022-06-02] MEDS ORDERED: ALLO100 PO (08:46)
[2022-06-02] MEDS ORDERED: ATORVASTATIN CA80 M1 PO (08:47)
[2022-06-02] MEDS ORDERED: LEVO-T88 MC1 PO (08:48)
[2022-06-02] MEDS ORDERED: LOSARTAN POTAS100 M1 PO (08:49)
[2022-06-02] MEDS ORDERED: METO50ER PO (08:51)
[2022-06-02] MEDS ORDERED: XARELTO20 MG PO (11:30)
[2022-06-02] MEDS ORDERED: Acetaminophen650 M1 PO (11:38)
--- NOTE | 2022-06-02 13:00 | NUR ---
DISCHARGE HOME PT A&O X4. VSS. SPO2 > 92% ON RA. MONITOR SHOWING SB, HR 50s. PT DENYING ANY PAIN/DISCOMFORT. PT DAUGHTER AT BEDSIDE. DISCHARGE INSTRUCTIONS REVIEWED W/ PT & PT FAMILY MEMBER. PIV REMOVED. PT TAKEN OUT BY WHEELCHAIR @ APPROX 1230.
== END 2022-06-02 14:38 | disposition home or self-care (01) ==
LOC: ER 18:42 → PCU 18:43
PROVIDERS: Emergency Medicine; Internal Medicine; ADMIT Family Medicine
DX: I48.91 Unspecified atrial fibrillation (principal); E83.42 Hypomagnesemia; E03.9 Hypothyroidism, unspecified; I13.0 Hypertensive heart and chronic kidney disease with heart failure and stage 1 through stage 4 chronic kidney disease, or unspecified chronic kidney disease; I50.32 Chronic diastolic (congestive) heart failure; N18.30 Chronic kidney disease, stage 3 unspecified; Z66 Do not resuscitate; Z86.73 Personal history of transient ischemic attack (TIA), and cerebral infarction without residual deficits; Z91.048 Other nonmedicinal substance allergy status; Z79.82 Long term (current) use of aspirin; Z87.891 Personal history of nicotine dependence; Z90.5 Acquired absence of kidney; Z96.642 Presence of left artificial hip joint
CPT/HCPCS: 36415; 71045; 80048; 80053; 80061; 83735; 84439; 84443; 84484; 85025; 93005; 93010; 93306; 96366; A9270; G0378; J3475

== ENCOUNTER 2023-11-13 07:15 | Day surgery (SDC) | payer MEDICARE, OTHER ==
[~2023-11-13] VITALS: Ht 157.5 cm; Wt 87.6 kg
[~2023-11-13 07:15] MED LIST changes: +ACETAMINOPHEN500 MG PO; +ATORVASTATIN CA80 M1 PO; +Acetaminophen650 M1 PO; +ESOM20 PO; +HYDCHL12.5 PO; +LEVO-T88 MC1 PO; +XARELTO20 MG PO
[2023-11-13] MEDS ORDERED: CeFAZolin Sodium 2,000 MG VIAL ONE (07:36)
[2023-11-13] MEDS ORDERED: NS 50 ML IV ONE (07:36)
[2023-11-13] MEDS ORDERED: propofoL 60 ML IV ONE (07:51)
[2023-11-13] MEDS ORDERED: Lactated Ringer's 1,000 ML IV ONE (07:56)
--- NOTE | 2023-11-13 07:57 | NUR ---
11/13/23 0757 Tammy Uriarte CALL LIGHT WITHIN REACH.
[2023-11-13] MEDS ORDERED: Lidocaine HCl 2% 20 MG/ML 5ML SYR XX ONE (08:45)
[2023-11-13 09:05] VITALS: BP 157/71
== END 2023-11-13 09:40 | disposition home or self-care (01) ==
LOC: ORSCSDS 07:15
PROVIDERS: Orthopaedic Surgery
PROC: 01N54ZZ Release Median Nerve, Percutaneous Endoscopic Approach (ICD-10-PCS; principal; 2023-11-13 08:30)
DX: G56.03 Carpal tunnel syndrome, bilateral upper limbs (principal); I48.91 Unspecified atrial fibrillation; E03.9 Hypothyroidism, unspecified; E78.5 Hyperlipidemia, unspecified; I12.9 Hypertensive chronic kidney disease with stage 1 through stage 4 chronic kidney disease, or unspecified chronic kidney disease; N18.9 Chronic kidney disease, unspecified; K21.9 Gastro-esophageal reflux disease without esophagitis; Z86.73 Personal history of transient ischemic attack (TIA), and cerebral infarction without residual deficits; Z85.3 Personal history of malignant neoplasm of breast; Z87.891 Personal history of nicotine dependence; Z79.01 Long term (current) use of anticoagulants; Z79.899 Other long term (current) drug therapy
CPT/HCPCS: J0690; J2001; J2704; J7120